=== PATIENT | female | born 1965 | race African-American/Black ===

== ENCOUNTER 2023-01-06 07:01 | Emergency (ER) | payer OTHER ==
[2023-01-06 08:20] LABS: SARS-CoV-2 NAA Rapid Test Not Detected (NotDetected)
== END 2023-01-06 08:45 | disposition home or self-care (01) ==
LOC: ERS 07:01
DX: J18.9 Pneumonia, unspecified organism (principal); I48.91 Unspecified atrial fibrillation; E78.5 Hyperlipidemia, unspecified; I10 Essential (primary) hypertension; Z79.899 Other long term (current) drug therapy; Z20.822 Contact with and (suspected) exposure to COVID-19
CPT/HCPCS: 71045; U0002